=== PATIENT | female | born 1980 | race Two or more races ===

== ENCOUNTER 2019-02-12 19:15 | Emergency (ER) | payer SELFPAY ==
[~2019-02-12] VITALS: Ht 172.7 cm; Wt 58.5 kg
--- NOTE | 2019-02-12 19:39 | NUR ---
BIBS. C/O "FLU LIKE SYMPTOMS. XFEW DAYS. +FEVER. +COUGH +CONGESTION" -SOB NOTED. VSS. AOX4. AMBULATORY "CANT TAKE TYLENOL,IRRITATES BOWELS" PT AWAKE, ALERT, -SOB, NADN OTED, VSS ,PENDING MD RIVREA
[2019-02-12] MEDS ORDERED: KETOROLAC TROMETHAMINE INJ 30 MG/ML VIAL IV ONE (20:30)
[2019-02-12] MEDS ORDERED: ONDANSETRON HCL/PF 4 MG/2 ML VIAL IVP ONE (20:30)
[2019-02-12] MEDS ORDERED: IV NS 0.9% 1,000 ML BAG IV ONE (20:30)
[2019-02-12] MEDS ORDERED: ONDANSETRON HCL/PF 4 MG/2 ML VIAL ONE (20:48)
[2019-02-12] MEDS ORDERED: KETOROLAC TROMETHAMINE 15 MG/ML VIAL ONE (20:48)
[2019-02-12 20:49] LABS: BASOPHILS % (AUTO) 0.3 % (0.0-2.0); EOSINOPHILS % (AUTO) 0.6 % (0.0-6.0); HEMATOCRIT 31 % (33-45); HEMOGLOBIN 9.9 g/dL (11.5-14.8); LYMPHOCYTES # (AUTO) 0.6 /CMM (0.8-4.8); LYMPHOCYTES % (AUTO) 14.1 % (20.0-44.0); MEAN CORPUSCULAR HGB CONC 32 g/dl (31.0-36.0); MEAN CORPUSCULAR VOLUME 79 fL (82-100); MONOCYTES # (AUTO) 0.6 /CMM (0.1-1.30); MONOCYTES % (AUTO) 12.3 % (2.0-12.0); NEUTROPHILS # (AUTO) 3.3 /CMM (1.8-8.9); NEUTROPHILS % (AUTO) 72.7 % (43.0-81.0); PLATELET COUNT (AUTO) 395 /CMM (150-450); RED BLOOD CELL COUNT(AUTO) 3.94 MIL/uL (4.0-5.2); WHITE BLOOD COUNT (AUTO) 4.6 K/uL (4.3-11.0)
--- NOTE | 2019-02-12 20:55 | NUR ---
PT UNABLE TO PROVIDE URINE SAMPLE AT THIS TIME
[2019-02-12 20:58] LABS: CALCIUM, SERUM 8.4 mg/dL (8.5-10.1); POTASSIUM 3.1 mmol/L (3.5-5.1)
[2019-02-12 21:57] VITALS: BP 104/58
[2019-02-12] MEDS ORDERED: POTASSIUM CHLORIDE 20 MEQ TAB.PRT.SR PO ONE ×2 (22:00→22:11)
--- NOTE | 2019-02-12 22:31 | NUR ---
Patient discharged to home in stable condition. Written and verbal after care instructions given. Patient verbalizes understanding of instruction. IV removed. Catheter intact and site benign. Pressure and 4x4 applied to site. No bleeding noted.
== END 2019-02-12 22:45 | disposition home or self-care (01) ==
LOC: ER 19:19
DX: R50.9 Fever, unspecified (principal); R05 Cough; R07.89 Other chest pain; R09.81 Nasal congestion; D64.9 Anemia, unspecified; M79.10 Myalgia, unspecified site
CPT/HCPCS: 36415; 71045; 80048; 84703; 85025; 96374; 96375; 99284; J1885; J2405; J7030

== ENCOUNTER 2019-02-15 14:32 | Emergency (ER) | payer SELFPAY ==
[~2019-02-15] VITALS: Ht 172.7 cm; Wt 59.0 kg
--- NOTE | 2019-02-15 14:35 | NUR ---
PT BIB [facility] FROM HOME, [facility] SINCE SHE WAS SEEN HERE 3 DAYS AGO, PT IS AAOX4, NOT IN RESPIRATORY DISTRESS, HOOKED TO MONITOR, KEPT RESTED AND COMFORTABLE, WILL CONTINUE TO MONITOR.
--- NOTE | 2019-02-15 14:40 | NUR ---
SEEN AND EXAMINED BY .
[2019-02-15] MEDS ORDERED: ONDANSETRON HCL/PF 4 MG/2 ML VIAL ONE (14:47)
[2019-02-15 14:53] LABS: BASOPHILS % (AUTO) 0.4 % (0.0-2.0); EOSINOPHILS % (AUTO) 0.1 % (0.0-6.0); HEMATOCRIT 33 % (33-45); HEMOGLOBIN 10.6 g/dL (11.5-14.8); LYMPHOCYTES % (AUTO) 25.8 % (20.0-44.0); MEAN CORPUSCULAR HGB CONC 32 g/dl (31.0-36.0); MEAN CORPUSCULAR VOLUME 78 fL (82-100); MONOCYTES # (AUTO) 0.4 /CMM (0.1-1.30); MONOCYTES % (AUTO) 11.3 % (2.0-12.0); NEUTROPHILS # (AUTO) 2.4 /CMM (1.8-8.9); NEUTROPHILS % (AUTO) 62.4 % (43.0-81.0); PLATELET COUNT (AUTO) 414 /CMM (150-450); RED BLOOD CELL COUNT(AUTO) 4.25 MIL/uL (4.0-5.2); WHITE BLOOD COUNT (AUTO) 3.8 K/uL (4.3-11.0)
--- NOTE | 2019-02-15 14:55 | NUR ---
IV LINE ESTABLISHED, BLOOD DRAWN AND SENT TO LAB.
[2019-02-15] MEDS ORDERED: ONDANSETRON HCL/PF 4 MG/2 ML VIAL IVP ONE (15:00)
[2019-02-15] MEDS ORDERED: IV NS 0.9% 1,000 ML IV ONE (15:00)
[2019-02-15] MEDS ORDERED: IV NS 0.9% 1,000 ML BAG IV ONE (15:00)
--- NOTE | 2019-02-15 15:00 | NUR ---
URINAL GIVEN UNABLE TO PROVIDE URINE SPECIMEN THIS TIME.
[2019-02-15 15:03] LABS: CALCIUM, SERUM 8.7 mg/dL (8.5-10.1); CREATININE 0.9 mg/dL (0.6-1.3); POTASSIUM 3.3 mmol/L (3.5-5.1)
[2019-02-15 15:09] LABS: ALBUMIN 2.8 g/dL (3.4-5.0); BILIRUBIN,TOTAL 0.2 mg/dL (0.2-1.0); TOTAL PROTEIN, SERUM 7.7 g/dL (6.4-8.2)
--- NOTE | 2019-02-15 16:05 | NUR ---
URINE SPECIMEN COLLECTED AND SENT TO LAB.
[2019-02-15] MEDS ORDERED: POTASSIUM CHLORIDE 20 MEQ TAB.PRT.SR PO ONE ×2 (16:30→16:31)
--- NOTE | 2019-02-15 16:35 | NUR ---
IV removed. Catheter intact and site benign. Pressure and 4x4 applied to site. No bleeding noted. Patient discharged to home in stable condition. Written and verbal after care instructions given. Patient verbalizes understanding of instruction.
[2019-02-15 16:57] VITALS: BP 128/78
== END 2019-02-15 16:57 | disposition home or self-care (01) ==
LOC: ER 14:34
DX: R19.7 Diarrhea, unspecified (principal); E86.0 Dehydration; Z60.2 Problems related to living alone
CPT/HCPCS: 36415; 80048; 80076; 83690; 84702; 85025; 96360; 99283; J2405; J7030